=== PATIENT | male | born 1995 | race Hispanic/Latino ===

== ENCOUNTER 2019-01-09 20:30 | Emergency (ER) | payer SELFPAY ==
--- NOTE | 2019-01-09 21:25 | RAD ---
LEFT SHOULDER: 01/09/19 INDICATIONS: Left shoulder pain. Humeral head is normally positioned. The AC joint is upper normal width measuring at 9 to 10 mm. The alignment is preserved. I cannot exclude a grade I separation. Recommend clinical correlation. IMPRESSION: Mild widening of the AC joint. Recommend clinical correlation. POS: AGW
== END 2019-01-09 21:46 | disposition home or self-care (01) ==
LOC: ERS 20:30
DX: M75.52 Bursitis of left shoulder (principal)